=== PATIENT | female | born 1945 | race African-American/Black ===

== ENCOUNTER → 2018-01-05 07:28 | Outpatient (CLI) | payer MEDICARE ==
--- NOTE | ~2018-01-05 | EC ---
PATIENT:SYLVIA ABREU DATE OF SERVICE: 01/05/18 SEX: F MEDICAL RECORD: [id number] DATE OF : 49 LOCATION:D. AGE OF PATIENT: 72 ADMISSION DATE: 01/05/18 REFERRING PHYSICIAN: INTERPRETING PHYSICIAN: SHANNAN GRAVES MD ECHOCARDIOGRAM REPORT ECHO CHARGES 4 ECHO COMPLETE Date: 01/05 CLINICAL DIAGNOSIS: CP/ANGINA/DYSPNEA/PALPITATIONS ECHOCARDIOGRAPHIC MEASUREMENTS (adult normal given) AC root (d.<3.7cm) 3.1 cm LV Septum d (<1.2 cm> 2.1 cm Valve Excursion 1.7 cm LV Septum (systole) 2.6 cm Left Atria (s.<4.0cm> 3.3 cm LVPW d(<1.2cm) 1.8 cm RV (d.<2.3cm) 2.3 cm LVPW (sytole) 2.5 cm LV diastole(<5.6CM) 3.3 cm MV E-F(>70mm/sec) cm LV systole 1.3 cm LVOT Diameter 1.9 cm MV exc.(>10mm) cm Est.ejection fraction (50-75%) % DOPPLER: LVIT cm/sec A 62.0 cm/sec E 71.0 cm/sec LA cm/sec RVSP 38.4 mmHg LVOT 114 cm/sec AOP1/2T m/s Asc. Ao 184 cm/sec RVOT 71.0 cm/sec RA cm/sec PA 111 cm/sec AV Gradient Peak 14.0 mmHg AV Mean 5.9 mmHg AV Area 1.7 cm MV Gradient Peak 5.1 mmHg MV Mean 1.2 mmHg MV Area cm COMMENTS: Forensic Scientist: eYe FERN[employer] Program Services Planner: 4 Dr. Graves TAPE# PACS Pericardial Effusion N DATE OF SERVICE: PROCEDURE: Transthoracic echocardiogram. FINAL IMPRESSION: 1. Left ventricle with severe concentric left ventricular hypertrophy with ejection fraction of 55%. Inflow characteristics consistent with diastolic dysfunction. 2. The mitral valve has trace mitral regurgitation. 3. The left atrium is normal size, normal function. ECHOCARDIOGRAM REPORT [id number] SYLVIA ABREU 4. The aortic valve is sclerotic. 5. The tricuspid valve has trace tricuspid regurgitation. The RVSP is 38 mmHg. 6. The right ventricle is normal size, normal function. 7. Aortic valve is mildly sclerotic without stenosis or regurgitation. CONCLUSION: The patient has significant left ventricular hypertrophy. In proper context, the search for amyloidosis may be reasonable unless the patient has known longstanding hypertensive heart disease. TRANSINT:[id number] Voice Confirmation ID: [id number] DOCUMENT ID: [id number] SHANNAN GRAVES MD at 0741 CC: [id number] DICTATION DATE: 01/12/18 1047 WATER MAIN PIPE LAYER: 01/12/18 1229 DEP CLI 01/05/18 [id number] [place] [address]
== END | disposition home or self-care (01) ==
LOC: D.US 07:28
DX: R07.9 Chest pain, unspecified (principal); R06.02 Shortness of breath; R00.2 Palpitations; R16.0 Hepatomegaly, not elsewhere classified; I20.9 Angina pectoris, unspecified; F10.20 Alcohol dependence, uncomplicated